=== PATIENT | male | born 1995 | race Caucasian/White ===

== ENCOUNTER 2018-03-24 17:41 | Emergency (ER) | payer BC, OTHER ==
[2018-03-24 17:48] VITALS: BP 148/92; PULSE 89; TEMP 99.2; BMI 27.3
[2018-03-24] MEDS ORDERED: AZITHROMYCIN 250 MG TABLET PO ONE (18:19)
--- NOTE | 2018-03-24 18:20 | PDOC ---
History of Present Illness - General Chief Complaint: HIV Testing Stated Complaint: STD TESTING Time Seen by Provider: 03/24/18 18:14 - History of Present Illness Initial Comments: 03/24/18 18:20 22-year-old male presents for evaluation requesting post exposure prophylactic therapy for unprotected sex last night with another male he has no comorbidities and to his knowledge he is HIV negative. Past History - Past Medical History Allergies/Adverse Reactions: Allergies Allergy/AdvReac Type Severity Reaction Status Date / Time No Known Allergies Allergy Verified 03/24/18 17:42 Home Medications: Ambulatory Orders NK [No Known Home Medication] 03/24/18 Asthma: No Cardiac Disorders: No Diabetes: No HTN: No Hypercholesterolemia: No Seizures: No - Suicide/Smoking/Psychosocial Hx Smoking History: Never smoked Hx Alcohol Use: No Drug/Substance Use Hx: No Review of Systems - Review of Systems Constitutional: Yes: See HPI *Physical Exam - Vital Signs Last Vital Signs Temp Pulse Resp BP Pulse Ox 99.2 F 89 18 148/92 99 03/24/18 17:42 03/24/18 17:42 03/24/18 17:42 03/24/18 17:42 03/24/18 17:42 - Physical Exam Comments: 03/24/18 18:20 HEAD: NC/AT MS: Full ROM in all joints without edema NEUROLOGIC: No gross sensory or motor deficits, NVID SKIN: Normal color and temperature no lesions or rashes Moderate Sedation - Procedure Monitoring Vital Signs: Procedure Monitoring Vital Signs Temperature 99.2 F 03/24/18 17:42 Pulse Rate 89 03/24/18 17:42 Respiratory Rate 18 03/24/18 17:42 Blood Pressure 148/92 03/24/18 17:42 O2 Sat by Pulse Oximetry (%) 99 03/24/18 17:42 *DC/Admit/Observation/Transfer Diagnosis at time of Disposition: Screen for STD (sexually transmitted disease), History of exposure to HIV - Discharge Dispostion Disposition: HOME Condition at time of disposition: Stable Decision to Admit order: No - Referrals Referrals: Violeta Rendon MD [Staff Physician] - - Patient Instructions Printed Discharge Instructions: How to Detect and Treat STDs, Facts About Sexually Transmitted Infections Additional Instructions: Return to the emergency room should symptoms worsen or go unresolved. Please follow-up with your primary care physician for continuation of the post exposure prophylactic treatment for potential HIV exposure you're also treated for gonorrhea and chlamydia - Post Discharge Activity
[2018-03-24] MEDS ORDERED: AZITHROMYCIN 250 MG TABLET ONE (18:25)
[2018-03-24] MEDS ORDERED: HIV POST EXPOSURE PROPHYLAXIS KIT NR ONE (20:36)
[2018-03-24] MEDS ORDERED: HIV POST EXPOSURE PROPHYLAXIS KIT PO ONE (20:40)
== END 2018-03-24 20:44 | disposition home or self-care (01) ==
LOC: JERFT 17:41
DX: Z11.3 Encounter for screening for infections with a predominantly sexual mode of transmission (principal); Z11.4 Encounter for screening for human immunodeficiency virus [HIV]
CPT/HCPCS: 36415; 87389; 99281-25